=== PATIENT | male | born 1960 | race Caucasian/White ===

== ENCOUNTER 2020-06-28 08:10 | Emergency (ER) | payer OTHER ==
[~2020-06-28] VITALS: Ht 185.4 cm; Wt 102.2 kg
--- NOTE | 2020-06-28 08:53 | NUR ---
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
--- NOTE | 2020-06-28 09:15 | NUR ---
TASK RN: PT WITH C/O DIFFICULTY WITH SWALLOWING FOOD, WITH A SENSATION THAT FOOD AND LIQUIDS ARE "GETTING STUCK IN CHEST". +EPIGASTRIC PAIN WITH PALPATION. ER PROVIDER AT BEDSIDE, PT ASSESSMENT POC DISCUSSED AND ORDERS REC'D. BP AND PULSE OX MONITORING IN PLACE, CALL IGHT W/I REACH. VSS, NAD NOTED.
[2020-06-28] MEDS ORDERED: SODIUM CHLORIDE FLUSH 10ML SYR IVF ONE (09:30)
[2020-06-28 09:39] LABS: BASOPHILS # (AUTO) 0.03 x10^3/uL (0-0.1); BASOPHILS % (AUTO) 0 % (0-1); EOSINOPHILS # (AUTO) 0.34 x10^3/uL (0-0.4); EOSINOPHILS % (AUTO) 4 % (1-7); LYMPHOCYTES # (AUTO) 1.39 x10^3/uL (1-3.4); LYMPHOCYTES % (AUTO) 16 % (22-44); MD NO; MEAN CORPUSCULAR HGB CONC 32.5 g/dL (33.2-36.2); MEAN PLATELET VOLUME 11.9 fL (7.4-10.4); MONOCYTES # (AUTO) 0.41 x10^3/uL (0.2-0.8); MONOCYTES % (AUTO) 5 % (2-9); NEUTROPHILS # (AUTO) 6.63 x10^3/uL (1.8-6.8); NEUTROPHILS % (AUTO) 75 % (42-75); PLATELET COUNT 158 x10^3/uL (130-400); RED BLOOD COUNT 5.41 x10^6/uL (4.38-5.82); RED CELL DISTRIBUTION WIDTH 14.3 % (9.4-14.8)
[2020-06-28 09:50] LABS: ALANINE AMINOTRANSFERASE 12 U/L (12-78); ALBUMIN 3.3 g/dL (3.4-5.0); ANION GAP 3 mmol/L (5-15); CALCIUM 8.9 mg/dL (8.5-10.1); CHLORIDE 108 mmol/L (98-107); CREATININE 1.05 mg/dL (0.7-1.3)
[2020-06-28 09:53] LABS: ALKALINE PHOSPHATASE 81 U/L (45-117); BILIRUBIN,TOTAL 0.6 mg/dL (0.2-1.0); TOTAL PROTEIN 7.1 g/dL (6.4-8.2)
[2020-06-28 11:20] VITALS: BP 116/76
--- NOTE | 2020-06-28 12:00 | NUR ---
SPOKE AT LENT FOR APPROX 25 MIN WITH PT CONCERNING ADMISSION VS. AMA. PT STILL WISHES TO SIGN OUT AMA. PROVIDER NOTIFIED.
== END 2020-06-28 12:42 | disposition home or self-care (01) ==
LOC: ED 09:00
DX: K22.2 Esophageal obstruction (principal); F17.210 Nicotine dependence, cigarettes, uncomplicated
CPT/HCPCS: 36415; 74220; 80053; 83690; 85025; 99284; 99406

== ENCOUNTER 2020-08-05 06:56 | Day surgery (SDC) | payer OTHER ==
[~2020-08-05] VITALS: Ht 188 cm; Wt 95.0 kg
[2020-08-05 07:30] VITALS: BP 122/86
[2020-08-05] MEDS ORDERED: CEFAZOLIN PMX 1GM/50ML 50 ML IV STA (07:32)
[2020-08-05] MEDS ORDERED: SODIUM CHLORIDE 0.9% 1,000 ML IV ONE (07:32)
[2020-08-05] MEDS ORDERED: LIDOCAINE 1%, 10ML ONE (08:27)
[2020-08-05] MEDS ORDERED: LIDOCAINE 1%, 20ML ONE (08:27)
[2020-08-05] MEDS ORDERED: MIDAZOLAM 1 MG/ML, 5ML ONE (08:30)
[2020-08-05] MEDS ORDERED: FLUMAZENIL 0.1 MG/1 ML, 5ML ONE (08:30)
[2020-08-05] MEDS ORDERED: FENTANYL PF 100 MCG/2ML ONE ×2 (08:30)
[2020-08-05] MEDS ORDERED: NALOXONE 1 MG/ML, 2ML ONE (08:31)
== END 2020-08-05 10:30 | disposition home or self-care (01) ==
LOC: OUT 06:56
PROVIDERS: ATTEND Internal Medicine
DX: Z45.2 Encounter for adjustment and management of vascular access device (principal); C15.5 Malignant neoplasm of lower third of esophagus; F17.210 Nicotine dependence, cigarettes, uncomplicated; K21.9 Gastro-esophageal reflux disease without esophagitis; Z72.89 Other problems related to lifestyle; Z98.890 Other specified postprocedural states; Z79.899 Other long term (current) drug therapy
CPT/HCPCS: 36561; 76937; 77001; 99156; 99157; C1788; C1894; J0690; J1642; J2250; J3010; J7030; J2310

== ENCOUNTER 2020-08-27 18:29 | Inpatient (IN) | payer OTHER ==
[~2020-08-27] VITALS: Ht 188 cm; Wt 90.7 kg
[2020-08-27] MEDS ORDERED: SODIUM CHLORIDE 0.9% 1,000 ML IV ONE (18:36)
--- NOTE | 2020-08-27 18:48 | NUR ---
FIRST CHEMOTHERAPY ON THE FOR ESOPHAGEAL CANCER. HAVING N/V EVERY DAY AFTER CHEMO. PT NOT EATING. REPORTS NOT HAVING A BM IN 3 WEEKS. DENIES ANY PAIN. LAB/EKG IN ROOM. 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 WENT OVER PLAN OF CARE FROM ORDER LIST. PT AGREES TO PLAN.
[2020-08-27] MEDS ORDERED: PROC10TA78 PO (18:50)
[2020-08-27] MEDS ORDERED: ONDA4TAB7 PO (18:50)
[2020-08-27] MEDS ORDERED: ONDANSETRON 2MG/ML, 2ML IVPush ONE (19:00)
[2020-08-27] MEDS ORDERED: PLEASE ENTER HEIGHT AND WEIGHT MC SCH (19:00)
[2020-08-27] MEDS ORDERED: SODIUM CHLORIDE FLUSH 10ML SYR IVF ONE (19:00)
[2020-08-27] MEDS ORDERED: SODIUM CHLORIDE 0.9% 1,000ML IVBOLUS ONE (19:00)
[2020-08-27] MEDS ORDERED: ONDANSETRON 2MG/ML, 2ML ONE (19:02)
--- NOTE | 2020-08-27 19:11 | NUR ---
RECEIVED REPORT FROM JOSE MARTIN LAKE. PT BACK FROM IMAGING. 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 IVF RUNNING PER JAN. PT RESTING ON [email or web address]. MARY. CALL LIGHT IN REACH.
--- NOTE | 2020-08-27 19:13 | NUR ---
PT STATES HE IS UNABLE TO PROVIDE URINE AT THIS TIME.
[2020-08-27 19:15] LABS: ALBUMIN 3.2 g/dL (3.4-5.0); ANION GAP 4 mmol/L (5-15); CALCIUM 8.7 mg/dL (8.5-10.1); CHLORIDE 105 mmol/L (98-107)
[2020-08-27 19:18] LABS: BASOPHILS # (AUTO) 0.03 x10^3/uL (0-0.1); BASOPHILS % (AUTO) 0 % (0-1); EOSINOPHILS % (AUTO) 3 % (1-7); LYMPHOCYTES % (AUTO) 13 % (22-44); MD SCAN; MEAN CORPUSCULAR HGB CONC 33.2 g/dL (33.2-36.2); MEAN PLATELET VOLUME 9.9 fL (7.4-10.4); MONOCYTES # (AUTO) 0.42 x10^3/uL (0.2-0.8); MONOCYTES % (AUTO) 4 % (2-9); NEUTROPHILS # (AUTO) 8.49 x10^3/uL (1.8-6.8); NEUTROPHILS % (AUTO) 80 % (42-75); PLATELET COUNT 250 x10^3/uL (130-400); RED BLOOD COUNT 3.25 x10^6/uL (4.38-5.82); RED CELL DISTRIBUTION WIDTH 16.3 % (9.4-14.8)
[2020-08-27 19:19] LABS: ALANINE AMINOTRANSFERASE 20 U/L (12-78); ALKALINE PHOSPHATASE 78 U/L (45-117); BILIRUBIN,TOTAL 0.9 mg/dL (0.2-1.0); CREATININE 0.98 mg/dL (0.7-1.3); TOTAL PROTEIN 7.2 g/dL (6.4-8.2)
--- NOTE | 2020-08-27 19:40 | NUR ---
ALL RESULTS ARE BACK AT THIS TIME. CHART UP FOR RECHECK.
[2020-08-27] MEDS ORDERED: SODIUM CHLORIDE FLUSH 10ML SYR IVF PRN (20:00)
--- NOTE | 2020-08-27 20:26 | NUR ---
REPORT GIVEN TO MANUELA LAKE
[2020-08-27 20:57] VITALS: BP 123/76
[2020-08-27] MEDS ORDERED: BISACODYL 10 MG SUPP PR PRN (21:00)
[2020-08-27] MEDS ORDERED: POLYETHYLENE GLYCOL 17 GM PACKET PO PRN (21:00)
[2020-08-27] MEDS ORDERED: LORazepam 2 MG/ML, 1ML IVPush PRN (21:00)
[2020-08-27] MEDS ORDERED: PROMETHAZINE 25 MG/ML, 1ML IM PRN (21:00)
[2020-08-27] MEDS: SODIUM CHLORIDE 0.9% 1,000 ML IV SCH (21:43)
[2020-08-27] MEDS: HEPARIN 5,000 UNITS/ML, 1ML SQ SCH (21:43)
[2020-08-27] MEDS: ONDANSETRON 2MG/ML, 2ML IVPush PRN (21:44)
[2020-08-28 01:05] VITALS: BP 113/74
[2020-08-28] MEDS: SODIUM CHLORIDE 0.9% 1,000 ML IV SCH (04:55)
[2020-08-28] MEDS: HEPARIN 5,000 UNITS/ML, 1ML SQ SCH (04:55)
[2020-08-28] MEDS: ONDANSETRON 2MG/ML, 2ML IVPush PRN (05:35)
[2020-08-28 05:54] LABS: ANION GAP 6 mmol/L (5-15); CHLORIDE 108 mmol/L (98-107)
[2020-08-28 05:57] LABS: CREATININE 0.78 mg/dL (0.7-1.3)
[2020-08-28 06:10] LABS: BASOPHILS # (AUTO) 0.04 x10^3/uL (0-0.1); BASOPHILS % (AUTO) 1 % (0-1); EOSINOPHILS # (AUTO) 0.25 x10^3/uL (0-0.4); EOSINOPHILS % (AUTO) 3 % (1-7); LYMPHOCYTES # (AUTO) 1.26 x10^3/uL (1-3.4); LYMPHOCYTES % (AUTO) 16 % (22-44); MD NO; MEAN CORPUSCULAR HEMOGLOBIN 30.1 pg (27.5-34.5); MEAN CORPUSCULAR HGB CONC 33.5 g/dL (33.2-36.2); MEAN PLATELET VOLUME 9.5 fL (7.4-10.4); MONOCYTES # (AUTO) 0.44 x10^3/uL (0.2-0.8); MONOCYTES % (AUTO) 6 % (2-9); NEUTROPHILS # (AUTO) 5.96 x10^3/uL (1.8-6.8); NEUTROPHILS % (AUTO) 75 % (42-75); PLATELET COUNT 224 x10^3/uL (130-400); RED BLOOD COUNT 2.78 x10^6/uL (4.38-5.82); RED CELL DISTRIBUTION WIDTH 16.3 % (9.4-14.8)
[2020-08-28 06:50] VITALS: BP 98/62
[2020-08-28] MEDS ORDERED: SENNA/DOCUSATE TABLET PO SCH (09:00)
[2020-08-28] MEDS ORDERED: METOCLOPRAMIDE 5 MG/ML, 2ML IVPush PRN (10:00)
[2020-08-28] MEDS ORDERED: MAGNESIUM HYDROXIDE 8%, 30ML UDC PO SCH (11:30)
[2020-08-28 12:23] VITALS: BP 109/71
[2020-08-28] MEDS ORDERED: ONDA8TAB9 PO (13:34)
== END 2020-08-28 15:43 | disposition home or self-care (01) | DRG 641 ==
LOC: ED 18:56 → EDIP 20:21 → 4NW 20:52 → DCLOUNGE 08-28 15:33
PROVIDERS: ADMIT Family Medicine; ATTEND Family Medicine
DX: E86.0 Dehydration (principal); C15.9 Malignant neoplasm of esophagus, unspecified; F17.210 Nicotine dependence, cigarettes, uncomplicated; D64.9 Anemia, unspecified; D72.829 Elevated white blood cell count, unspecified; Z80.9 Family history of malignant neoplasm, unspecified; Z83.3 Family history of diabetes mellitus; Z85.01 Personal history of malignant neoplasm of esophagus; Z92.21 Personal history of antineoplastic chemotherapy; R11.2 Nausea with vomiting, unspecified
CPT/HCPCS: 36415; 74022; 80048; 80053; 83690; 85025; 93005; 96361; 96374; 99285; G0378; J1644; J2405; J7030

== ENCOUNTER 2020-09-05 13:24 | Inpatient (IN) | payer MEDICAID ==
[~2020-09-05] VITALS: Ht 188 cm; Wt 88.8 kg
[~2020-09-05 13:24] MED LIST: ONDA4TAB7 PO; ONDA8TAB9 PO; PROC10TA78 PO
--- NOTE | 2020-09-05 13:30 | NUR ---
LATE ENTRY FOR 1330 D/T PATIENT CARE: PT PRESENTS TO ED VIA AMBULANCE, REPORT TAKEN FROM EMS. PT HAS INTRACTIBLE N/V, NO BM X 3 DAYS. LAST CHEMO ADMIN 2 WEEKS AGO. PT STATES HE TOOK 1 DOSE ZOFRAN THIS AM, OTHERWISE HAS NOT TAKEN ANY MEDS. PT IS A&O, RESPS EVEN AND UNLABORED. 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 ALL MONITORS IN PLACE, AWAITING MD AND ORDERS.
[2020-09-05] MEDS ORDERED: SODIUM CHLORIDE 0.9% 1,000ML IVBOLUS ONE (14:00)
[2020-09-05] MEDS ORDERED: SODIUM CHLORIDE FLUSH 10ML SYR IVF ONE (14:00)
[2020-09-05] MEDS ORDERED: ONDANSETRON 2MG/ML, 2ML IVPush ONE (14:00)
[2020-09-05] MEDS ORDERED: FAMOTIDINE 20 MG/2 ML IVPush ONE (14:00)
[2020-09-05 14:21] LABS: BASOPHILS % (AUTO) 1 % (0-1); EOSINOPHILS % (AUTO) 3 % (1-7); LYMPHOCYTES % (AUTO) 12 % (22-44); MEAN CORPUSCULAR HEMOGLOBIN 29.4 pg (27.5-34.5); MEAN CORPUSCULAR HGB CONC 32.2 g/dL (33.2-36.2); MEAN PLATELET VOLUME 8.9 fL (7.4-10.4); MONOCYTES % (AUTO) 8 % (2-9); NEUTROPHILS % (AUTO) 77 % (42-75); PLATELET COUNT 217 x10^3/uL (130-400); RED BLOOD COUNT 3.38 x10^6/uL (4.38-5.82); RED CELL DISTRIBUTION WIDTH 16.8 % (9.4-14.8)
[2020-09-05 14:24] LABS: ALBUMIN 2.9 g/dL (3.4-5.0); ANION GAP 5 mmol/L (5-15); CALCIUM 8.4 mg/dL (8.5-10.1); CHLORIDE 111 mmol/L (98-107); CREATININE 0.75 mg/dL (0.7-1.3)
[2020-09-05 14:29] LABS: MD NO
[2020-09-05] MEDS ORDERED: ONDANSETRON 2MG/ML, 2ML ONE (14:59)
[2020-09-05] MEDS ORDERED: FAMOTIDINE 20 MG/2 ML ONE (15:04)
--- NOTE | 2020-09-05 15:05 | NUR ---
LATE ENTRY FOR 1505 D/T PATIENT CARE: PT MEDICATED PER EMAR BY TASK JAYA MAXWELL, TOLERATED WELL. PT A&O, RESPS EVEN AND UNLABORED, MARY.
[2020-09-05] MEDS ORDERED: SODIUM CHLORIDE 0.9% 1,000 ML IV ONE (15:15)
[2020-09-05] MEDS ORDERED: COMPAZINE (15:28)
[2020-09-05] MEDS ORDERED: ZOFRAN (15:28)
[2020-09-05] MEDS ORDERED: SODIUM CHLORIDE FLUSH 10ML SYR IVF PRN (15:30)
[2020-09-05] MEDS ORDERED: ONDANSETRON 2MG/ML, 2ML IVPush PRN (15:30)
--- NOTE | 2020-09-05 15:45 | NUR ---
REPORT GIVEN TO RECEIVING RN LEIF YADAV. 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 NO N/V AT THIS TIME. PT TRANSPORTED TO MED SURG WITH NO INCIDENT.
[2020-09-05] MEDS ORDERED: ENALAPRILAT 1.25 MG/ML, 2ML IVPush PRN (16:00)
[2020-09-05] MEDS ORDERED: ACETAMINOPHEN 325 MG TABLET PO PRN (16:00)
[2020-09-05 16:35] VITALS: BP 125/70
[2020-09-05] MEDS: D5%-0.45NACL+KCL 20MEQ 1,000 ML IV SCH (17:20)
[2020-09-05 18:30] VITALS: BP 124/84
[2020-09-06 00:42] VITALS: BP 112/73
[2020-09-06 04:37] LABS: BASOPHILS % (AUTO) 1 % (0-1); EOSINOPHILS % (AUTO) 4 % (1-7); LYMPHOCYTES % (AUTO) 17 % (22-44); MEAN CORPUSCULAR HEMOGLOBIN 30.2 pg (27.5-34.5); MEAN CORPUSCULAR HGB CONC 33.2 g/dL (33.2-36.2); MEAN PLATELET VOLUME 9.3 fL (7.4-10.4); MONOCYTES % (AUTO) 8 % (2-9); NEUTROPHILS % (AUTO) 70 % (42-75); PLATELET COUNT 200 x10^3/uL (130-400); RED BLOOD COUNT 2.98 x10^6/uL (4.38-5.82)
[2020-09-06 04:43] LABS: INTERNATIONAL NORMALIZED RATIO 1.16 (0.93-1.1)
[2020-09-06 04:44] LABS: ANION GAP 4 mmol/L (5-15); CALCIUM 8.2 mg/dL (8.5-10.1); CHLORIDE 109 mmol/L (98-107); CREATININE 0.78 mg/dL (0.7-1.3)
[2020-09-06 05:02] LABS: MD NO
[2020-09-06] MEDS: D5%-0.45NACL+KCL 20MEQ 1,000 ML IV SCH ×2 (06:08→21:28)
[2020-09-06 07:59] VITALS: BP 113/74
[2020-09-06] MEDS: SENNA/DOCUSATE TABLET PO SCH (08:13)
[2020-09-06] MEDS ORDERED: LIDOCAINE 1%, 20ML ONE (09:37)
[2020-09-06] MEDS ORDERED: NALOXONE 1 MG/ML, 2ML ONE (09:54)
[2020-09-06] MEDS ORDERED: MIDAZOLAM 1 MG/ML, 5ML ONE (09:54)
[2020-09-06] MEDS ORDERED: FLUMAZENIL 0.1 MG/1 ML, 5ML ONE (09:54)
[2020-09-06] MEDS ORDERED: FENTANYL PF 100 MCG/2ML ONE (09:54)
[2020-09-06] MEDS ORDERED: LIDOCAINE GEL 2%, 5ML ONE (10:10)
[2020-09-06] MEDS ORDERED: CEFAZOLIN PMX 1GM/50ML 50 ML ONE (10:11)
[2020-09-06] MEDS ORDERED: VISIPAQUE 270 MG/ML, 50ML BOTTLE ONE (10:51)
[2020-09-06] MEDS: OXYcodone IR 5MG TABLET PO PRN ×2 (14:49→19:27)
[2020-09-06 18:30] VITALS: BP 118/74
[2020-09-07 00:05] VITALS: BP 110/73
[2020-09-07] MEDS: OXYcodone IR 5MG TABLET PO PRN ×3 (00:09→20:26)
[2020-09-07 07:24] VITALS: BP 103/68
[2020-09-07] MEDS: SENNA/DOCUSATE TABLET PO SCH (10:37)
[2020-09-07] MEDS: D5%-0.45NACL+KCL 20MEQ 1,000 ML IV SCH ×2 (10:37→23:47)
[2020-09-07 13:02] VITALS: BP 104/68
[2020-09-07 14:38] LABS: ALBUMIN 2.7 g/dL (3.4-5.0); ANION GAP 7 mmol/L (5-15); CALCIUM 8.2 mg/dL (8.5-10.1); CHLORIDE 106 mmol/L (98-107); CREATININE 0.61 mg/dL (0.7-1.3)
[2020-09-07 19:11] VITALS: BP 115/74
[2020-09-08 01:14] VITALS: BP 111/74
[2020-09-08] MEDS: OXYcodone IR 5MG TABLET PO PRN ×3 (01:17→20:57)
[2020-09-08 06:10] LABS: ALBUMIN 2.5 g/dL (3.4-5.0); ANION GAP 6 mmol/L (5-15); CALCIUM 8.2 mg/dL (8.5-10.1); CHLORIDE 107 mmol/L (98-107)
[2020-09-08 06:18] LABS: BASOPHILS % (AUTO) 1 % (0-1); EOSINOPHILS % (AUTO) 5 % (1-7); LYMPHOCYTES % (AUTO) 19 % (22-44); MEAN CORPUSCULAR HEMOGLOBIN 30.3 pg (27.5-34.5); MEAN CORPUSCULAR HGB CONC 32.9 g/dL (33.2-36.2); MEAN PLATELET VOLUME 9.6 fL (7.4-10.4); MONOCYTES % (AUTO) 9 % (2-9); NEUTROPHILS % (AUTO) 67 % (42-75); PLATELET COUNT 160 x10^3/uL (130-400); RED BLOOD COUNT 2.94 x10^6/uL (4.38-5.82)
[2020-09-08 06:32] LABS: MD NO
[2020-09-08 08:19] VITALS: BP 99/64
[2020-09-08] MEDS: SENNA/DOCUSATE TABLET PO SCH (09:48)
[2020-09-08] MEDS: D5%-0.45NACL+KCL 20MEQ 1,000 ML IV SCH (13:18)
[2020-09-08 15:23] VITALS: BP 107/70
[2020-09-08 19:13] VITALS: BP 108/68
[2020-09-09] MEDS: D5%-0.45NACL+KCL 20MEQ 1,000 ML IV SCH (01:37)
[2020-09-09 04:26] VITALS: BP 108/68
[2020-09-09 06:55] VITALS: BP 105/67
[2020-09-09] MEDS: SENNA/DOCUSATE TABLET PO SCH (08:44)
[2020-09-09 13:17] VITALS: BP 116/68
[2020-09-09] MEDS: OXYcodone IR 5MG TABLET PO PRN (20:02)
[2020-09-09 20:34] VITALS: BP 97/60
[2020-09-10 00:47] VITALS: BP 100/66
[2020-09-10 07:28] VITALS: BP 109/67
[2020-09-10] MEDS: SENNA/DOCUSATE TABLET PO SCH (08:06)
[2020-09-10 10:06] LABS: BASOPHILS % (AUTO) 1 % (0-1); EOSINOPHILS % (AUTO) 3 % (1-7); LYMPHOCYTES % (AUTO) 12 % (22-44); MEAN CORPUSCULAR HEMOGLOBIN 30.1 pg (27.5-34.5); MEAN CORPUSCULAR HGB CONC 33.1 g/dL (33.2-36.2); MEAN PLATELET VOLUME 10.1 fL (7.4-10.4); MONOCYTES % (AUTO) 8 % (2-9); NEUTROPHILS % (AUTO) 77 % (42-75); PLATELET COUNT 176 x10^3/uL (130-400); RED BLOOD COUNT 2.86 x10^6/uL (4.38-5.82)
[2020-09-10 10:07] LABS: ALBUMIN 2.8 g/dL (3.4-5.0); ANION GAP 5 mmol/L (5-15); CALCIUM 8.9 mg/dL (8.5-10.1); CHLORIDE 107 mmol/L (98-107); CREATININE 0.71 mg/dL (0.7-1.3)
[2020-09-10 10:09] LABS: MD NO
[2020-09-10] MEDS: OXYcodone IR 5MG TABLET PO PRN ×2 (12:52→18:32)
[2020-09-10] MEDS: PROMETHAZINE 25 MG/ML, 1ML IM PRN (12:54)
[2020-09-10 13:19] VITALS: BP 101/63
[2020-09-10 16:22] LABS: GASTRIC OCCULT BLD POSITIVE (NEGATIVE)
[2020-09-10 16:23] LABS: GASTRIC PH 1 (1-7)
[2020-09-10 19:13] VITALS: BP 97/65
[2020-09-10] MEDS: OMEPRAZOLE 20 MG CAPSULE.DR PO SCH (20:03)
[2020-09-11 00:23] VITALS: BP 107/74
[2020-09-11] MEDS: OXYcodone IR 5MG TABLET PO PRN ×2 (00:57→20:28)
[2020-09-11 04:37] LABS: BASOPHILS % (AUTO) 1 % (0-1); EOSINOPHILS % (AUTO) 4 % (1-7); LYMPHOCYTES % (AUTO) 21 % (22-44); MEAN CORPUSCULAR HEMOGLOBIN 29.7 pg (27.5-34.5); MEAN CORPUSCULAR HGB CONC 32.9 g/dL (33.2-36.2); MEAN PLATELET VOLUME 9.9 fL (7.4-10.4); MONOCYTES % (AUTO) 7 % (2-9); NEUTROPHILS % (AUTO) 67 % (42-75); PLATELET COUNT 176 x10^3/uL (130-400); RED BLOOD COUNT 2.86 x10^6/uL (4.38-5.82); RED CELL DISTRIBUTION WIDTH 17.4 % (9.4-14.8)
[2020-09-11 04:39] LABS: MD NO
[2020-09-11] MEDS: OMEPRAZOLE 20 MG CAPSULE.DR PO SCH (05:00)
[2020-09-11 08:17] VITALS: BP 100/65
[2020-09-11] MEDS: SENNA/DOCUSATE TABLET PO SCH (08:20)
[2020-09-11] MEDS: PANTOPRAZOLE 40 MG IV IVPush SCH ×2 (10:28→20:29)
[2020-09-11] MEDS: SUCRALFATE 1 GM/10 ML UDC PO SCH ×3 (12:17→20:28)
[2020-09-11 13:22] VITALS: BP 102/68
[2020-09-11 18:35] VITALS: BP 114/75
[2020-09-12 00:22] VITALS: BP 95/59
[2020-09-12 06:09] LABS: BASOPHILS % (AUTO) 1 % (0-1); EOSINOPHILS % (AUTO) 4 % (1-7); LYMPHOCYTES % (AUTO) 17 % (22-44); MEAN CORPUSCULAR HGB CONC 32.8 g/dL (33.2-36.2); MEAN PLATELET VOLUME 10.3 fL (7.4-10.4); MONOCYTES % (AUTO) 7 % (2-9); NEUTROPHILS % (AUTO) 71 % (42-75); PLATELET COUNT 171 x10^3/uL (130-400); RED BLOOD COUNT 2.65 x10^6/uL (4.38-5.82); RED CELL DISTRIBUTION WIDTH 16.7 % (9.4-14.8)
[2020-09-12 06:15] LABS: ANION GAP 5 mmol/L (5-15); CALCIUM 8.9 mg/dL (8.5-10.1); CHLORIDE 108 mmol/L (98-107); CREATININE 0.67 mg/dL (0.7-1.3)
[2020-09-12 06:42] LABS: MD NO
[2020-09-12] MEDS: SUCRALFATE 1 GM/10 ML UDC PO SCH ×4 (07:00→21:37)
[2020-09-12] MEDS: PANTOPRAZOLE 40 MG IV IVPush SCH ×2 (07:26→20:13)
[2020-09-12] MEDS: SENNA/DOCUSATE TABLET PO SCH (07:27)
[2020-09-12] MEDS ORDERED: CHLORHEXIDINE 15 ML UDC MM STA (09:37)
[2020-09-12] MEDS ORDERED: PROPOFOL 10 MG/ML, 20ML ONE (10:08)
[2020-09-12] MEDS ORDERED: ONDANSETRON 2MG/ML, 2ML IVPush PRN (10:30)
[2020-09-12] MEDS ORDERED: ACETAMINOPHEN 325 MG TABLET PO PRN (10:30)
[2020-09-12] MEDS ORDERED: PROMETHAZINE 25 MG SUPP PR PRN (10:30)
[2020-09-12] MEDS ORDERED: OXYcodone 5 MG/5 ML ORAL.SOL UDC PO PRN (10:30)
[2020-09-12 15:25] VITALS: BP 123/71
[2020-09-12] MEDS: PROMETHAZINE 25 MG/ML, 1ML IM PRN (18:00)
[2020-09-12] MEDS: OXYcodone IR 5MG TABLET PO PRN ×2 (19:02→21:38)
[2020-09-12 19:05] VITALS: BP 109/71
[2020-09-13 03:25] VITALS: BP 105/69
[2020-09-13 05:50] LABS: BASOPHILS % (AUTO) 1 % (0-1); EOSINOPHILS % (AUTO) 4 % (1-7); LYMPHOCYTES % (AUTO) 18 % (22-44); MEAN CORPUSCULAR HEMOGLOBIN 29.9 pg (27.5-34.5); MEAN CORPUSCULAR HGB CONC 32.6 g/dL (33.2-36.2); MONOCYTES % (AUTO) 9 % (2-9); NEUTROPHILS % (AUTO) 69 % (42-75); PLATELET COUNT 167 x10^3/uL (130-400); RED BLOOD COUNT 2.54 x10^6/uL (4.38-5.82); RED CELL DISTRIBUTION WIDTH 17.2 % (9.4-14.8)
[2020-09-13 06:02] LABS: ANION GAP 6 mmol/L (5-15); CALCIUM 8.5 mg/dL (8.5-10.1); CHLORIDE 108 mmol/L (98-107)
[2020-09-13 06:03] LABS: MD NO
[2020-09-13 06:05] LABS: CREATININE 0.68 mg/dL (0.7-1.3)
[2020-09-13 07:06] VITALS: BP 101/63
[2020-09-13] MEDS: SUCRALFATE 1 GM/10 ML UDC PO SCH ×4 (08:15→20:22)
[2020-09-13] MEDS: SENNA/DOCUSATE TABLET PO SCH (08:15)
[2020-09-13] MEDS: PANTOPRAZOLE 40 MG IV IVPush SCH (08:15)
[2020-09-13 13:59] VITALS: BP 97/61
[2020-09-13] MEDS: PANTOPRAZOLE 40MG TABLET PO SCH (17:15)
[2020-09-13] MEDS: OXYcodone IR 5MG TABLET PO PRN ×2 (17:15→21:20)
[2020-09-13 19:36] VITALS: BP 108/71
[2020-09-14 00:33] VITALS: BP 101/64
[2020-09-14] MEDS: PROMETHAZINE 25 MG/ML, 1ML IM PRN ×3 (01:04→20:37)
[2020-09-14] MEDS: PANTOPRAZOLE 40MG TABLET PO SCH ×2 (05:24→16:28)
[2020-09-14 07:01] VITALS: BP 100/67
[2020-09-14] MEDS: SENNA/DOCUSATE TABLET PO SCH (08:12)
[2020-09-14 12:17] VITALS: BP 110/69
[2020-09-14 19:03] VITALS: BP 101/50
[2020-09-14] MEDS: OXYcodone IR 5MG TABLET PO PRN (20:37)
[2020-09-15 03:55] VITALS: BP 92/56
[2020-09-15] MEDS: PROMETHAZINE 25 MG/ML, 1ML IM PRN ×5 (06:34→21:41)
[2020-09-15] MEDS: PANTOPRAZOLE 40MG TABLET PO SCH (06:34)
[2020-09-15 06:58] VITALS: BP 97/58
[2020-09-15] MEDS: SENNA/DOCUSATE TABLET PO SCH (08:42)
[2020-09-15 12:52] VITALS: BP 93/55
[2020-09-15] MEDS: PANTOPRAZOLE 80 MG in SODIUM CHLORIDE 0.9% 100 ML IV SCH ×2 (14:59→23:53)
[2020-09-15] MEDS: OXYcodone IR 5MG TABLET PO PRN ×2 (17:34→21:41)
[2020-09-15 18:27] VITALS: BP 100/61
[2020-09-16 00:21] VITALS: BP 102/65
[2020-09-16 05:11] LABS: BASOPHILS % (AUTO) 1 % (0-1); EOSINOPHILS % (AUTO) 4 % (1-7); LYMPHOCYTES % (AUTO) 20 % (22-44); MEAN CORPUSCULAR HEMOGLOBIN 29.6 pg (27.5-34.5); MEAN PLATELET VOLUME 10.3 fL (7.4-10.4); MONOCYTES % (AUTO) 8 % (2-9); NEUTROPHILS % (AUTO) 67 % (42-75); PLATELET COUNT 178 x10^3/uL (130-400); RED BLOOD COUNT 2.72 x10^6/uL (4.38-5.82); RED CELL DISTRIBUTION WIDTH 17.6 % (9.4-14.8)
[2020-09-16 05:17] LABS: CALCIUM 8.3 mg/dL (8.5-10.1); CHLORIDE 106 mmol/L (98-107)
[2020-09-16 05:19] LABS: MD NO
[2020-09-16 05:20] LABS: ANION GAP 4 mmol/L (5-15); CREATININE 0.76 mg/dL (0.7-1.3)
[2020-09-16 08:12] VITALS: BP 109/73
[2020-09-16] MEDS: SENNA/DOCUSATE TABLET PO SCH (08:48)
[2020-09-16] MEDS: PANTOPRAZOLE 80 MG in SODIUM CHLORIDE 0.9% 100 ML IV SCH ×2 (09:44→19:47)
[2020-09-16 13:00] VITALS: BP 91/58
[2020-09-16] MEDS: PROMETHAZINE 25 MG/ML, 1ML IM PRN ×2 (15:59→22:01)
[2020-09-16] MEDS: OXYcodone IR 5MG TABLET PO PRN ×2 (18:37→22:04)
[2020-09-16] MEDS: ONDANSETRON 2MG/ML, 2ML IVPush PRN (18:37)
[2020-09-16 19:44] VITALS: BP 106/67
[2020-09-17 01:29] VITALS: BP 100/67
[2020-09-17] MEDS: PANTOPRAZOLE 80 MG in SODIUM CHLORIDE 0.9% 100 ML IV SCH ×2 (05:35→16:16)
[2020-09-17 07:42] VITALS: BP 94/58
[2020-09-17] MEDS: SENNA/DOCUSATE TABLET PO SCH (07:55)
[2020-09-17 14:30] VITALS: BP 108/69
[2020-09-17] MEDS: PROMETHAZINE 25 MG/ML, 1ML IM PRN ×2 (16:23→20:04)
[2020-09-17 18:05] VITALS: BP 95/60
[2020-09-17] MEDS: OXYcodone IR 5MG TABLET PO PRN (20:03)
[2020-09-17] MEDS: ONDANSETRON 2MG/ML, 2ML IVPush PRN (21:16)
[2020-09-18] MEDS: PANTOPRAZOLE 80 MG in SODIUM CHLORIDE 0.9% 100 ML IV SCH ×3 (02:18→23:49)
[2020-09-18] MEDS: OXYcodone IR 5MG TABLET PO PRN ×3 (02:21→23:20)
[2020-09-18 02:22] VITALS: BP 100/64
[2020-09-18 07:52] VITALS: BP_SYST 77; BP_SYST 93; BP_DIAS 47; BP_DIAS 58
[2020-09-18] MEDS: SENNA/DOCUSATE TABLET PO SCH (10:23)
[2020-09-18 12:39] VITALS: BP 99/61
[2020-09-18] MEDS: POLYETHYLENE GLYCOL 17 GM PACKET PO SCH (16:03)
[2020-09-18] MEDS: ONDANSETRON 2MG/ML, 2ML IVPush PRN (17:58)
[2020-09-18 18:48] VITALS: BP 93/57
[2020-09-19 02:36] VITALS: BP 99/60
[2020-09-19 07:06] VITALS: BP 100/63
[2020-09-19] MEDS: POLYETHYLENE GLYCOL 17 GM PACKET PO SCH (09:20)
[2020-09-19] MEDS: SENNA/DOCUSATE TABLET PO SCH (09:20)
[2020-09-19] MEDS: PANTOPRAZOLE 80 MG in SODIUM CHLORIDE 0.9% 100 ML IV SCH ×2 (09:21→18:34)
[2020-09-19] MEDS: ONDANSETRON 2MG/ML, 2ML IVPush PRN ×2 (11:09→18:17)
[2020-09-19] MEDS: OXYcodone IR 5MG TABLET PO PRN ×2 (12:42→20:09)
[2020-09-19] MEDS: PROMETHAZINE 25 MG/ML, 1ML IM PRN ×2 (12:44→20:08)
[2020-09-19 13:32] VITALS: BP 95/65
[2020-09-19 19:11] VITALS: BP 98/65
[2020-09-19] MEDS: MAGNESIUM HYDROXIDE 8%, 30ML UDC PO SCH (20:01)
[2020-09-20 01:30] VITALS: BP 96/60
[2020-09-20] MEDS: PANTOPRAZOLE 80 MG in SODIUM CHLORIDE 0.9% 100 ML IV SCH ×2 (04:05→15:03)
[2020-09-20 07:05] VITALS: BP 94/55
[2020-09-20] MEDS: SENNA/DOCUSATE TABLET PO SCH (09:53)
[2020-09-20] MEDS: MAGNESIUM HYDROXIDE 8%, 30ML UDC PO SCH ×2 (09:53→20:09)
[2020-09-20] MEDS: POLYETHYLENE GLYCOL 17 GM PACKET PO SCH (09:53)
[2020-09-20 15:42] VITALS: BP 94/63
[2020-09-20] MEDS: ONDANSETRON 2MG/ML, 2ML IVPush PRN ×2 (17:08→23:42)
[2020-09-20 19:35] VITALS: BP 113/75
[2020-09-20] MEDS: PROMETHAZINE 25 MG/ML, 1ML IM PRN (20:04)
[2020-09-20] MEDS: OXYcodone IR 5MG TABLET PO PRN ×2 (20:04→23:42)
[2020-09-21] VITALS (7 sets, daily range): BP systolic 87–108; BP diastolic 46–71
[2020-09-21] MEDS: PANTOPRAZOLE 80 MG in SODIUM CHLORIDE 0.9% 100 ML IV SCH ×2 (01:21→19:56)
[2020-09-21] MEDS: PROMETHAZINE 25 MG/ML, 1ML IM PRN ×3 (04:48→12:43)
[2020-09-21] MEDS: ONDANSETRON 2MG/ML, 2ML IVPush PRN ×2 (07:53→15:29)
[2020-09-21] MEDS ORDERED: SODIUM CHLORIDE 0.9%, 250ML IVBOLUS ONE (09:00)
[2020-09-21] MEDS: SENNA/DOCUSATE TABLET PO SCH (09:00)
[2020-09-21] MEDS: MAGNESIUM HYDROXIDE 8%, 30ML UDC PO SCH ×2 (09:00→20:38)
[2020-09-21] MEDS: POLYETHYLENE GLYCOL 17 GM PACKET PO SCH (09:00)
[2020-09-21] MEDS ORDERED: ALBUMIN HUMAN 25% 100 ML IV ONE (09:00)
[2020-09-21 09:15] LABS: BASOPHILS % (AUTO) 1 % (0-1); EOSINOPHILS % (AUTO) 1 % (1-7); LYMPHOCYTES % (AUTO) 4 % (22-44); MEAN CORPUSCULAR HEMOGLOBIN 29.4 pg (27.5-34.5); MEAN CORPUSCULAR HGB CONC 32.8 g/dL (33.2-36.2); MEAN PLATELET VOLUME 9.3 fL (7.4-10.4); MONOCYTES % (AUTO) 3 % (2-9); NEUTROPHILS % (AUTO) 91 % (42-75); PLATELET COUNT 214 x10^3/uL (130-400); RED BLOOD COUNT 2.67 x10^6/uL (4.38-5.82); RED CELL DISTRIBUTION WIDTH 17.1 % (9.4-14.8)
[2020-09-21 09:27] LABS: ANION GAP 6 mmol/L (5-15); CALCIUM 8.1 mg/dL (8.5-10.1); CHLORIDE 104 mmol/L (98-107); CREATININE 0.82 mg/dL (0.7-1.3)
[2020-09-21 09:39] LABS: ANISOCYTOSIS 1+; MD MORPH REVIEW ONLY; POLYCHROMASIA 1+
[2020-09-21 09:40] LABS: <PLATELET ESTIMATE> ADEQUATE; <PLT MORPHOLOGY> NORMAL PLT MORPH
[2020-09-21] MEDS ORDERED: ACETAMINOPHEN 325 MG TABLET PO ONE (14:00)
[2020-09-21] MEDS ORDERED: DIPHENHYDRAMINE 12.5MG/5ML, 10ML UDC PO ONE (14:00)
[2020-09-21] MEDS: METOCLOPRAMIDE 5 MG/ML, 2ML IVPush SCH ×2 (15:29→19:58)
[2020-09-21] MEDS: SUCRALFATE 1 GM/10 ML UDC PO SCH ×2 (15:29→20:38)
[2020-09-21] MEDS: OXYcodone IR 5MG TABLET PO PRN ×2 (15:29→23:46)
[2020-09-22] VITALS (8 sets, daily range): BP systolic 97–108; BP diastolic 60–71
[2020-09-22] MEDS: METOCLOPRAMIDE 5 MG/ML, 2ML IVPush SCH ×4 (02:21→19:36)
[2020-09-22] MEDS: OXYcodone IR 5MG TABLET PO PRN ×5 (02:23→23:23)
[2020-09-22] MEDS: SUCRALFATE 1 GM/10 ML UDC PO SCH ×4 (05:38→19:35)
[2020-09-22] MEDS: PANTOPRAZOLE 80 MG in SODIUM CHLORIDE 0.9% 100 ML IV SCH (05:39)
[2020-09-22 06:02] LABS: ALANINE AMINOTRANSFERASE 12 U/L (12-78); ALBUMIN 2.5 g/dL (3.4-5.0); ANION GAP 6 mmol/L (5-15); CHLORIDE 103 mmol/L (98-107); CREATININE 0.74 mg/dL (0.7-1.3)
[2020-09-22 06:05] LABS: ALKALINE PHOSPHATASE 76 U/L (45-117); BILIRUBIN,TOTAL 0.9 mg/dL (0.2-1.0)
[2020-09-22 06:18] LABS: BASOPHILS % (AUTO) 1 % (0-1); EOSINOPHILS % (AUTO) 4 % (1-7); LYMPHOCYTES % (AUTO) 12 % (22-44); MEAN CORPUSCULAR HEMOGLOBIN 29.5 pg (27.5-34.5); MEAN CORPUSCULAR HGB CONC 32.9 g/dL (33.2-36.2); MEAN PLATELET VOLUME 10.1 fL (7.4-10.4); MONOCYTES % (AUTO) 8 % (2-9); NEUTROPHILS % (AUTO) 76 % (42-75); PLATELET COUNT 194 x10^3/uL (130-400); RED BLOOD COUNT 2.55 x10^6/uL (4.38-5.82)
[2020-09-22 07:15] LABS: MD NO
[2020-09-22] MEDS: POLYETHYLENE GLYCOL 17 GM PACKET PO SCH ×2 (08:34→19:36)
[2020-09-22] MEDS: SENNA/DOCUSATE TABLET PO SCH (08:34)
[2020-09-22] MEDS: MAGNESIUM HYDROXIDE 8%, 30ML UDC PO SCH ×2 (08:34→19:36)
[2020-09-22] MEDS: ONDANSETRON 2MG/ML, 2ML IVPush PRN (13:31)
[2020-09-22] MEDS ORDERED: ACETAMINOPHEN 325 MG TABLET PO ONE (15:30)
[2020-09-22] MEDS ORDERED: DIPHENHYDRAMINE 12.5MG/5ML, 10ML UDC PO ONE (15:30)
[2020-09-22] MEDS: PANTOPRAZOLE 40 MG IV IVPush SCH (16:10)
[2020-09-23 00:04] VITALS: BP 102/63
[2020-09-23] MEDS: METOCLOPRAMIDE 5 MG/ML, 2ML IVPush SCH ×4 (02:30→20:12)
[2020-09-23] MEDS: PANTOPRAZOLE 40 MG IV IVPush SCH ×2 (03:48→16:59)
[2020-09-23 05:41] LABS: BASOPHILS % (AUTO) 1 % (0-1); EOSINOPHILS % (AUTO) 4 % (1-7); LYMPHOCYTES % (AUTO) 11 % (22-44); MEAN CORPUSCULAR HEMOGLOBIN 29.2 pg (27.5-34.5); MEAN CORPUSCULAR HGB CONC 33.3 g/dL (33.2-36.2); MEAN PLATELET VOLUME 9.7 fL (7.4-10.4); MONOCYTES % (AUTO) 9 % (2-9); NEUTROPHILS % (AUTO) 76 % (42-75); PLATELET COUNT 229 x10^3/uL (130-400); RED BLOOD COUNT 2.88 x10^6/uL (4.38-5.82); RED CELL DISTRIBUTION WIDTH 16.6 % (9.4-14.8)
[2020-09-23] MEDS: PROMETHAZINE 25 MG/ML, 1ML IM PRN ×3 (05:42→16:58)
[2020-09-23 06:05] LABS: MD NO
[2020-09-23] MEDS: SUCRALFATE 1 GM/10 ML UDC PO SCH ×4 (06:08→20:11)
[2020-09-23] MEDS: SENNA/DOCUSATE TABLET PO SCH (07:36)
[2020-09-23] MEDS: MAGNESIUM HYDROXIDE 8%, 30ML UDC PO SCH ×2 (07:36→20:11)
[2020-09-23] MEDS: ONDANSETRON 2MG/ML, 2ML IVPush PRN ×3 (07:36→19:42)
[2020-09-23] MEDS: POLYETHYLENE GLYCOL 17 GM PACKET PO SCH ×2 (07:36→21:00)
[2020-09-23 07:42] VITALS: BP 94/57
--- NOTE | 2020-09-23 11:33 | NUR ---
Osmolite 1.5 goal: 70 ml/hr astolerated Addendum: 09/23/20 at [address] Amended: Links added.
[2020-09-23 13:16] VITALS: BP 102/64
[2020-09-23] MEDS: OXYcodone IR 5MG TABLET PO PRN ×2 (16:59→23:59)
[2020-09-23 18:35] VITALS: BP 101/64
[2020-09-24] VITALS (14 sets, daily range): BP systolic 90–108; BP diastolic 56–71
[2020-09-24] MEDS: ONDANSETRON 2MG/ML, 2ML IVPush PRN (02:27)
[2020-09-24] MEDS: METOCLOPRAMIDE 5 MG/ML, 2ML IVPush SCH ×4 (02:28→19:31)
[2020-09-24] MEDS: PANTOPRAZOLE 40 MG IV IVPush SCH ×2 (04:08→15:13)
[2020-09-24] MEDS: SUCRALFATE 1 GM/10 ML UDC PO SCH ×4 (06:00→21:34)
[2020-09-24 06:24] LABS: ANION GAP 5 mmol/L (5-15); CALCIUM 8.4 mg/dL (8.5-10.1); CHLORIDE 103 mmol/L (98-107)
[2020-09-24 06:25] LABS: CREATININE 0.75 mg/dL (0.7-1.3)
[2020-09-24 06:39] LABS: BASOPHILS % (AUTO) 1 % (0-1); EOSINOPHILS % (AUTO) 3 % (1-7); LYMPHOCYTES % (AUTO) 11 % (22-44); MEAN CORPUSCULAR HEMOGLOBIN 29.6 pg (27.5-34.5); MEAN CORPUSCULAR HGB CONC 33.2 g/dL (33.2-36.2); MEAN PLATELET VOLUME 9.9 fL (7.4-10.4); MONOCYTES % (AUTO) 8 % (2-9); NEUTROPHILS % (AUTO) 78 % (42-75); PLATELET COUNT 229 x10^3/uL (130-400); RED BLOOD COUNT 2.51 x10^6/uL (4.38-5.82); RED CELL DISTRIBUTION WIDTH 16.6 % (9.4-14.8)
[2020-09-24 07:08] LABS: MD NO
[2020-09-24] MEDS ORDERED: ACETAMINOPHEN 325 MG TABLET PO PRN (08:00)
[2020-09-24] MEDS ORDERED: DIPHENHYDRAMINE 12.5MG/5ML, 10ML UDC PO PRN (08:00)
[2020-09-24] MEDS: POLYETHYLENE GLYCOL 17 GM PACKET PO SCH ×2 (09:00→21:00)
[2020-09-24] MEDS: SENNA/DOCUSATE TABLET PO SCH (09:21)
[2020-09-24] MEDS: MAGNESIUM HYDROXIDE 8%, 30ML UDC PO SCH ×2 (09:21→19:31)
[2020-09-24] MEDS: OXYcodone IR 5MG TABLET PO PRN ×3 (09:22→23:11)
[2020-09-24] MEDS ORDERED: ACETAMINOPHEN 325 MG TABLET PO ONE ×2 (14:30)
[2020-09-25] VITALS (9 sets, daily range): BP systolic 95–121; BP diastolic 58–78
[2020-09-25] MEDS: PANTOPRAZOLE 40 MG IV IVPush SCH ×2 (02:57→20:45)
[2020-09-25] MEDS: METOCLOPRAMIDE 5 MG/ML, 2ML IVPush SCH ×4 (02:57→20:45)
[2020-09-25] MEDS: ONDANSETRON 2MG/ML, 2ML IVPush PRN ×4 (04:50→23:58)
[2020-09-25] MEDS: OXYcodone IR 5MG TABLET PO PRN (05:36)
[2020-09-25] MEDS: SUCRALFATE 1 GM/10 ML UDC PO SCH ×4 (05:36→21:00)
[2020-09-25 06:49] LABS: BASOPHILS % (AUTO) 1 % (0-1); EOSINOPHILS % (AUTO) 4 % (1-7); LYMPHOCYTES % (AUTO) 6 % (22-44); MEAN CORPUSCULAR HEMOGLOBIN 29.2 pg (27.5-34.5); MEAN CORPUSCULAR HGB CONC 33.1 g/dL (33.2-36.2); MEAN PLATELET VOLUME 8.8 fL (7.4-10.4); MONOCYTES % (AUTO) 8 % (2-9); NEUTROPHILS % (AUTO) 81 % (42-75); PLATELET COUNT 247 x10^3/uL (130-400); RED BLOOD COUNT 2.94 x10^6/uL (4.38-5.82); RED CELL DISTRIBUTION WIDTH 17.1 % (9.4-14.8)
[2020-09-25 06:54] LABS: MD NO
[2020-09-25] MEDS: SENNA/DOCUSATE TABLET PO SCH (09:00)
[2020-09-25] MEDS: MAGNESIUM HYDROXIDE 8%, 30ML UDC PO SCH ×2 (09:00→21:00)
[2020-09-25] MEDS: POLYETHYLENE GLYCOL 17 GM PACKET PO SCH ×2 (09:00→21:00)
[2020-09-25] MEDS ORDERED: PANTOPRAZOLE GRAN. PKT 40 MG PO SCH (11:00)
[2020-09-25] MEDS ORDERED: ACETAMINOPHEN 325 MG TABLET PO ONE (15:00)
[2020-09-25] MEDS ORDERED: DIPHENHYDRAMINE 12.5MG/5ML, 10ML UDC PO ONE (15:00)
[2020-09-25] MEDS: D5%-LACTATED RINGERS 1,000 ML IV SCH (15:24)
[2020-09-25] MEDS ORDERED: D5%-0.45% NACL 1,000 ML IV SCH (15:30)
[2020-09-25] MEDS ORDERED: morphine SULFATE/PF 0.5 MG/ML, 10ML IV PRN (20:00)
[2020-09-26] MEDS: MORPHINE SULFATE 4 MG/ML, 1ML IVPush PRN ×5 (00:05→20:25)
[2020-09-26 02:08] VITALS: BP 112/73
[2020-09-26] MEDS: PROMETHAZINE 25 MG/ML, 1ML IM PRN ×2 (02:57→07:48)
[2020-09-26] MEDS: METOCLOPRAMIDE 5 MG/ML, 2ML IVPush SCH ×4 (02:57→21:06)
[2020-09-26] MEDS: ONDANSETRON 2MG/ML, 2ML IVPush PRN ×2 (05:50→12:29)
[2020-09-26] MEDS: SUCRALFATE 1 GM/10 ML UDC PO SCH ×4 (06:00→21:05)
[2020-09-26] MEDS: D5%-LACTATED RINGERS 1,000 ML IV SCH ×2 (06:03→15:44)
[2020-09-26 07:20] VITALS: BP 105/74
[2020-09-26] MEDS: MAGNESIUM HYDROXIDE 8%, 30ML UDC PO SCH ×2 (09:00→20:25)
[2020-09-26] MEDS: SENNA/DOCUSATE TABLET PO SCH (09:00)
[2020-09-26] MEDS: POLYETHYLENE GLYCOL 17 GM PACKET PO SCH ×2 (09:00→21:00)
[2020-09-26] MEDS: PANTOPRAZOLE 40 MG IV IVPush SCH ×2 (09:22→20:25)
[2020-09-26 13:52] VITALS: BP 111/74
[2020-09-26 18:59] VITALS: BP 114/77
[2020-09-26] MEDS: TEMAZEPAM 15 MG CAPSULE PO PRN (21:05)
[2020-09-27] VITALS (7 sets, daily range): BP systolic 100–133; BP diastolic 64–87
[2020-09-27] MEDS: D5%-LACTATED RINGERS 1,000 ML IV SCH ×3 (00:31→21:57)
[2020-09-27] MEDS: SUCRALFATE 1 GM/10 ML UDC PO SCH ×4 (03:00→19:47)
[2020-09-27] MEDS: METOCLOPRAMIDE 5 MG/ML, 2ML IVPush SCH ×4 (03:04→21:47)
[2020-09-27 06:44] LABS: BASOPHILS % (AUTO) 1 % (0-1); EOSINOPHILS % (AUTO) 5 % (1-7); LYMPHOCYTES % (AUTO) 9 % (22-44); MEAN CORPUSCULAR HEMOGLOBIN 29.5 pg (27.5-34.5); MEAN CORPUSCULAR HGB CONC 33.3 g/dL (33.2-36.2); MONOCYTES % (AUTO) 7 % (2-9); NEUTROPHILS % (AUTO) 79 % (42-75); PLATELET COUNT 282 x10^3/uL (130-400)
[2020-09-27 06:48] LABS: ANION GAP 4 mmol/L (5-15); CALCIUM 8.5 mg/dL (8.5-10.1); CHLORIDE 105 mmol/L (98-107); MD NO
[2020-09-27 06:57] LABS: CREATININE 0.73 mg/dL (0.7-1.3)
[2020-09-27] MEDS: POLYETHYLENE GLYCOL 17 GM PACKET PO SCH ×2 (08:36→21:47)
[2020-09-27] MEDS: MAGNESIUM HYDROXIDE 8%, 30ML UDC PO SCH ×2 (08:41→21:47)
[2020-09-27] MEDS: PANTOPRAZOLE 40 MG IV IVPush SCH ×2 (08:41→19:46)
[2020-09-27] MEDS: SENNA/DOCUSATE TABLET PO SCH (08:41)
[2020-09-27] MEDS ORDERED: OMNIPAQUE 350 MG/ML, 100ML BOTTLE ONE (09:46)
[2020-09-27] MEDS ORDERED: FENTANYL PF 100 MCG/2ML ONE (09:58)
[2020-09-27] MEDS ORDERED: FLUMAZENIL 0.1 MG/1 ML, 5ML ONE (09:58)
[2020-09-27] MEDS ORDERED: MIDAZOLAM 1 MG/ML, 5ML ONE (09:58)
[2020-09-27] MEDS ORDERED: LIDOCAINE 1%, 10ML ONE (09:59)
[2020-09-27] MEDS ORDERED: NALOXONE 1 MG/ML, 2ML ONE (09:59)
[2020-09-27] MEDS: MORPHINE SULFATE 4 MG/ML, 1ML IVPush PRN ×2 (12:21→17:19)
[2020-09-27] MEDS: PROMETHAZINE 25 MG/ML, 1ML IM PRN ×2 (15:25→19:46)
[2020-09-27] MEDS: ONDANSETRON 2MG/ML, 2ML IVPush PRN (18:33)
[2020-09-27] MEDS: TEMAZEPAM 15 MG CAPSULE PO PRN (21:48)
[2020-09-27] MEDS: OXYcodone IR 5MG TABLET PO PRN (21:48)
[2020-09-28] MEDS: PROMETHAZINE 25 MG/ML, 1ML IM PRN ×2 (00:57→04:49)
[2020-09-28] MEDS: OXYcodone IR 5MG TABLET PO PRN (02:48)
[2020-09-28 02:54] VITALS: BP 147/86
[2020-09-28] MEDS: METOCLOPRAMIDE 5 MG/ML, 2ML IVPush SCH ×3 (04:36→16:12)
[2020-09-28] MEDS: MORPHINE SULFATE 4 MG/ML, 1ML IVPush PRN ×3 (04:50→20:29)
[2020-09-28 06:50] VITALS: BP 122/79
[2020-09-28] MEDS: SUCRALFATE 1 GM/10 ML UDC PO SCH ×4 (07:28→20:29)
[2020-09-28] MEDS: D5%-LACTATED RINGERS 1,000 ML IV SCH ×2 (08:14→16:12)
[2020-09-28] MEDS: POLYETHYLENE GLYCOL 17 GM PACKET PO SCH ×2 (08:27→20:29)
[2020-09-28] MEDS: SENNA/DOCUSATE TABLET PO SCH (08:27)
[2020-09-28] MEDS: MAGNESIUM HYDROXIDE 8%, 30ML UDC PO SCH ×2 (08:27→20:29)
[2020-09-28] MEDS: PANTOPRAZOLE 40 MG IV IVPush SCH ×2 (08:49→20:29)
[2020-09-28 13:44] VITALS: BP 122/77
[2020-09-28 18:54] VITALS: BP 121/77
[2020-09-28] MEDS: ONDANSETRON 2MG/ML, 2ML IVPush PRN (19:20)
[2020-09-28 23:59] VITALS: BP 124/72
[2020-09-29] MEDS: METOCLOPRAMIDE 5 MG/ML, 2ML IVPush SCH ×5 (00:17→22:22)
[2020-09-29] MEDS: TEMAZEPAM 15 MG CAPSULE PO PRN ×3 (00:26→21:07)
[2020-09-29] MEDS: MORPHINE SULFATE 4 MG/ML, 1ML IVPush PRN ×5 (00:26→23:09)
[2020-09-29] MEDS: D5%-LACTATED RINGERS 1,000 ML IV SCH ×3 (02:13→23:09)
[2020-09-29 04:55] LABS: BASOPHILS % (AUTO) 0 % (0-1); EOSINOPHILS % (AUTO) 1 % (1-7); LYMPHOCYTES % (AUTO) 6 % (22-44); MEAN CORPUSCULAR HEMOGLOBIN 28.6 pg (27.5-34.5); MEAN CORPUSCULAR HGB CONC 32.4 g/dL (33.2-36.2); MEAN PLATELET VOLUME 8.8 fL (7.4-10.4); MONOCYTES % (AUTO) 5 % (2-9); NEUTROPHILS % (AUTO) 88 % (42-75); PLATELET COUNT 273 x10^3/uL (130-400); RED BLOOD COUNT 2.72 x10^6/uL (4.38-5.82); RED CELL DISTRIBUTION WIDTH 16.4 % (9.4-14.8)
[2020-09-29 05:02] LABS: MD NO
[2020-09-29 05:03] LABS: ANION GAP 7 mmol/L (5-15); CALCIUM 7.9 mg/dL (8.5-10.1); CHLORIDE 106 mmol/L (98-107)
[2020-09-29 05:04] LABS: CREATININE 0.54 mg/dL (0.7-1.3)
[2020-09-29] MEDS: SUCRALFATE 1 GM/10 ML UDC PO SCH ×4 (05:24→20:12)
[2020-09-29 06:58] VITALS: BP 104/61
[2020-09-29] MEDS: MAGNESIUM HYDROXIDE 8%, 30ML UDC PO SCH ×2 (07:51→20:12)
[2020-09-29] MEDS: SENNA/DOCUSATE TABLET PO SCH (07:51)
[2020-09-29] MEDS: POLYETHYLENE GLYCOL 17 GM PACKET PO SCH ×3 (07:51→20:15)
[2020-09-29] MEDS: PROMETHAZINE 25 MG/ML, 1ML IM PRN ×3 (07:52→17:13)
[2020-09-29] MEDS: ONDANSETRON 2MG/ML, 2ML IVPush PRN ×3 (07:52→20:12)
[2020-09-29] MEDS: PANTOPRAZOLE 40 MG IV IVPush SCH ×2 (07:52→20:13)
[2020-09-29 12:54] VITALS: BP 106/61
[2020-09-29] MEDS ORDERED: LORazepam 2 MG/ML, 1ML ONE (17:36)
[2020-09-29] MEDS: LORazepam 2 MG/ML, 1ML IVPush PRN (17:41)
[2020-09-29 19:46] VITALS: BP 107/96
[2020-09-29] MEDS: OXYcodone IR 5MG TABLET PO PRN (20:13)
[2020-09-30] MEDS: OXYcodone IR 5MG TABLET PO PRN ×2 (00:51→05:51)
[2020-09-30 02:37] VITALS: BP 102/78
[2020-09-30] MEDS: METOCLOPRAMIDE 5 MG/ML, 2ML IVPush SCH (03:51)
[2020-09-30] MEDS: SUCRALFATE 1 GM/10 ML UDC PO SCH (05:50)
[2020-09-30] MEDS: ONDANSETRON 2MG/ML, 2ML IVPush PRN (07:47)
[2020-09-30] MEDS: LORazepam 2 MG/ML, 1ML IVPush PRN (07:47)
[2020-09-30] MEDS: MAGNESIUM HYDROXIDE 8%, 30ML UDC PO SCH (07:47)
[2020-09-30] MEDS: SENNA/DOCUSATE TABLET PO SCH (07:47)
[2020-09-30] MEDS: POLYETHYLENE GLYCOL 17 GM PACKET PO SCH (07:47)
[2020-09-30 07:49] VITALS: BP 123/71
== END 2020-09-30 09:54 | disposition hospice, home (50) | DRG 240 ==
LOC: ED 15:14 → EDIP 15:15 → ED 15:16 → SUATTDRO 15:19 → 3N 16:19 → 4NW 09-06 18:30
PROVIDERS: ADMIT Hospitalist; ATTEND Hospitalist
PROC: 0DH63UZ Insertion of Feeding Device into Stomach, Percutaneous Approach (ICD-10-PCS; 2020-09-06)
PROC: 30233N1 Transfusion of Nonautologous Red Blood Cells into Peripheral Vein, Percutaneous Approach (ICD-10-PCS; 2020-09-21)
PROC: 04L23DZ Occlusion of Gastric Artery with Intraluminal Device, Percutaneous Approach (ICD-10-PCS; principal; 2020-09-27)
DX: C15.5 Malignant neoplasm of lower third of esophagus (principal); C16.0 Malignant neoplasm of cardia; K21.9 Gastro-esophageal reflux disease without esophagitis; Z66 Do not resuscitate; K59.00 Constipation, unspecified; K22.2 Esophageal obstruction; I10 Essential (primary) hypertension; F17.210 Nicotine dependence, cigarettes, uncomplicated; E86.0 Dehydration; G89.3 Neoplasm related pain (acute) (chronic); C79.72 Secondary malignant neoplasm of left adrenal gland; C78.7 Secondary malignant neoplasm of liver and intrahepatic bile duct; C79.71 Secondary malignant neoplasm of right adrenal gland; E46 Unspecified protein-calorie malnutrition; I26.99 Other pulmonary embolism without acute cor pulmonale; D62 Acute posthemorrhagic anemia; K92.0 Hematemesis; Z20.828 Contact with and (suspected) exposure to other viral communicable diseases; Z83.3 Family history of diabetes mellitus; Z86.711 Personal history of pulmonary embolism; Z56.0 Unemployment, unspecified; Z93.1 Gastrostomy status; Z79.4 Long term (current) use of insulin; Z80.9 Family history of malignant neoplasm, unspecified; Z92.21 Personal history of antineoplastic chemotherapy; Z85.01 Personal history of malignant neoplasm of esophagus; Z85.028 Personal history of other malignant neoplasm of stomach; Z68.25 Body mass index [BMI] 25.0-25.9, adult
CPT/HCPCS: J3490 ×2; 36415; 49440; 74175; 75894; 76937; 80048; 80053; 80069; 82040; 82271; 82607; 82728; 83540; 83550; 83735; 84100; 84439; 84443; 84481; 85014; 85018; 85025; 85610; 86850; 86900; 86923; 87635; 93306; 93970; 96361; 96374; 99156; 99157; 99285; C1725; C1894; G0378; J0690; J2250; J2405; J2550; J2704; J3010; P9047; Q9966; Q9967; C1729; C1751; C1760; C1769; C9113; J2060; J2270; J2310; J2765; J3480; J7030; J7050; J7121; P9016